=== PATIENT | male | born 1990 | race Two or more races ===

== ENCOUNTER 2021-02-08 09:18 | Outpatient (REF) | payer OTHER, SELFPAY | END 2021-02-08 09:19 | disposition home or self-care (01) | LOC: HO.LAB 09:18 | PROVIDERS: Visit Provider Internal Medicine | DX: Z20.822 Contact with and (suspected) exposure to COVID-19 (principal) | CPT/HCPCS: 36415; C9803; U0003; U0005 ==

== ENCOUNTER 2022-08-16 09:44 | Emergency (ER) | payer MEDICAID, SELFPAY ==
[2022-08-16 10:06] VITALS: BP 124/57; PULSE 56; RESP 18; TEMP 36.9; O2SAT 100; BMI 26.5
[2022-08-16 10:21] LABS: MANUAL DIFF FLAG NO
[2022-08-16 10:22] LABS: Basophils Percent Auto 0.4 % (0-2); Eosinophils Absolute Auto 0.1 X10*3/uL (0.0-0.4); Eosinophils Percent Auto 0.7 % (0-4); Hematocrit 46.2 % (42.0-52.0); Hemoglobin 15.2 g/dl (14.0-18.0); Imm Gran Abs Auto 0.03 X10*3/uL (0.00-0.03); Imm Gran Pct Auto 0.4 % (0.0-0.4); Lymphocytes Absolute Auto 2.1 X10*3/uL (1.2-4.9); Lymphocytes Percent Auto 31.1 % (20-40); Mean Corpuscular HGB Conc 32.9 g/dl (31.0-36.0); Mean Corpuscular Hemoglobin 28.7 pg (27.0-33.0); Mean Corpuscular Volume 87.3 fL (80.0-98.0); Mean Platelet Volume 9.6 fL (9.4-12.4); Monocytes Absolute Auto 0.4 X10*3/uL (0.1-1.2); Monocytes Percent Auto 6.1 % (2-11); Neutrophils Absolute Auto 4.2 x10*3/uL (2.0-8.3); Neutrophils Percent Auto 61.3 % (45-73); Platelet Count 267 X10*3/uL (160-400); Red Blood Count 5.29 X10*6/uL (4.60-5.80); Red Cell Distribution Width 11.9 % (11.0-16.0); White Blood Count 6.8 X10*3/uL (4.8-10.8)
[2022-08-16 10:40] LABS: Alanine Aminotransferase 25 U/L (0-40); Albumin Level 4.4 g/dL (3.5-5.0); Alkaline Phosphatase 69 U/L (39-117); Anion Gap 13 (12-20); Aspartate Amino Transferase 26 U/L (5-37); Bilirubin Total 0.6 mg/dL (0.0-1.0); Blood Urea Nitrogen 17 mg/dL (9-16); Calcium 9.5 mg/dL (8.4-10.2); Carbon Dioxide 26 mmol/L (22-29); Chloride 106 mmol/L (96-108); Creatinine Clr Calc Pharmacy 77.6; Estimated Glomerular Filt Rate > 60; Glucose Random 101 mg/dL (60-115); Lipase 14 U/L (8-78); Magnesium 1.9 mg/dL (1.6-2.6); Potassium 4.9 mmol/L (3.3-5.1); Sodium 140 mmol/L (135-145); Total Protein 7.2 g/dL (6.5-8.0)
[2022-08-16 10:46] LABS: COVID-19 Test Negative (Negative); IDNOW Serial# 16C4AD1C
--- NOTE | 2022-08-16 12:22 | ED.NAVMDI ---
HPI - Nausea/Vomiting/Diarrhea General Chief complaint: Nausea/Vomiting/Diarrhea Stated complaint: stomach pain Time Seen by Provider: 08/16/22 10:04 Source: patient Mode of arrival: ambulatory Limitations: no limitations History of Present Illness HPI Narrative: Patient comes to the emergency room complaining of nausea and vomiting x1 this morning. Patient went to the [employer] last night, states that something that he ate did not agree with him. Patient called out of work. Patient states that at work at home that he needed a work excuse to return to work tomorrow. At this time, the patient denies any abdominal pain, no nausea or vomiting or diarrhea, no fever chills, no URI or UTI symptoms Related Data Allergies Allergy/AdvReac Type Severity Reaction Status Date / Time No Known Allergies Allergy Unverified 08/06/20 19:20 [No Known Allergies*] Review of Systems Review of Systems: Constitutional : No Weight loss, No Fever, No Chills, No Night Sweats, No Fatigue, No Malaise ENT/Mouth : No Hearing loss, No Ear Pain, No Nasal Congestion, No Sinus Pain, No Hoarseness, No sore throat, No Rhinorrhea, No Swallowing Difficulty Eyes: No Eye Pain, No Swelling, No Redness, No Foreign Body, No Discharge, No Vision Changes Cardiovascular : No Chest Pain, No SOB, No Dyspnea on Exertion, No Orthopnea, No Edema, No Palpitations Respiratory : No Cough, No Sputum, No Wheezing, No Smoke Exposure, No Dyspnea Gastrointestinal : Complaining of nausea and vomiting, No Diarrhea, No Constipation, No abdominal Pain, No Hematochezia, No Melena Genitourinary : no irregular bleeding, No Dysuria, No Urinary Frequency, No Hematuria, No Urinary Incontinence, No Urgency, No Flank Pain, No Urinary Flow Changes, No Hesitancy Musculoskeletal : No joint pain, No Myalgias, No Joint Swelling Skin : No Skin Lesions, No rash Neuro : No Weakness, No Numbness, No Paresthesias, No Loss of Consciousness, No Dizziness, No Headache Psych : No Anxiety/Panic, No Depression, No SI/HI/AH/VH, No Social Issues, Heme/Lymph: No Bruising, No Bleeding,No Lymphadenopathy Endocrine : No Polyuria, No Polydipsia, No Temperature Intolerance Physical Exam Vital Signs: Vital Signs: Last Vital Signs Temp 98.4 F 08/16/22 10:06 Pulse 56 08/16/22 10:06 Resp 18 08/16/22 10:06 BP 124/57 L 08/16/22 10:06 Pulse Ox 100 08/16/22 10:06 O2 Del Method 08/16/22 10:06 BMI result Body Mass Index 26.5 Const: Other: Appearance: Alert. Oriented X3. No acute distress. Well-appearing Eyes: Pupils equal, round and reactive to light. ENT: Pharynx normal. Neck: Normal inspection. Neck supple. No lymph nodes noted. No crepitus CVS: Normal heart rate and rhythm. Pulses normal. Normal S1 and S2 Respiratory: No respiratory distress. Breath sounds normal. No Wheezing. No rales Abdomen: Soft and nontender. No rigidity. No distention. Skin: Skin warm and dry. Normal skin color. Normal skin turgor. Extremities: No lower extremity edema. No Lacerations. No Rash Neuro: Oriented X 3. No motor deficit. No sensory deficit. Moving all extremities. No slurred speech. CN 2 through 12 grossly intact Psych: calm, cooperative, normal affect Course Course Course Narrative: Patient vomited x1 in the morning. No diarrhea. No significant electrolyte abnormalities. COVID test is negative. Now patient is asymptomatic. Patient declined a prescription for nausea/vomiting. Patient only needs a work note MDM - Nausea/Vomiting/Diarrhea Lab Data Result diagrams: 08/16/22 10:16 08/16/22 10:16 Labs: Lab Results 08/16/22 08/16/22 08/16/22 Range/Units 10:16 10:16 10:16 WBC 6.8 (4.8-10.8) X10*3/uL RBC 5.29 (4.60-5.80) X10*6/uL Hgb 15.2 (14.0-18.0) g/dl Hct 46.2 (42.0-52.0) % MCV 87.3 (80.0-98.0) fL MCH 28.7 (27.0-33.0) pg MCHC 32.9 (31.0-36.0) g/dl RDW 11.9 (11.0-16.0) % Plt Count 267 (160-400) X10*3/uL MPV 9.6 (9.4-12.4) fL Immature Gran % (Auto) 0.4 (0.0-0.4) % Neut % (Auto) 61.3 (45-73) % Lymph % (Auto) 31.1 (20-40) % [place] % (Auto) 6.1 (2-11) % Eos % (Auto) 0.7 (0-4) % Baso % (Auto) 0.4 (0-2) % Lymph # (Auto) 2.1 (1.2-4.9) X10*3/uL [place] # (Auto) 0.4 (0.1-1.2) X10*3/uL Eos # (Auto) 0.1 (0.0-0.4) X10*3/uL Baso # (Auto) 0.0 (0.0-0.2) X10*3/uL Abs Immat Gran (auto) 0.03 (0.00-0.03) X10*3/uL Absolute Neuts (auto) 4.2 (2.0-8.3) x10*3/uL Absolute Nucleated RBC 0.000 (0.0-0.012) X10*3/uL Nucleated RBC % (auto) 0.0 (0.0-0.2) /100WBC Sodium 140 (135-145) mmol/L Potassium 4.9 (3.3-5.1) mmol/L Chloride 106 (96-108) mmol/L Carbon Dioxide 26 (22-29) mmol/L Anion Gap 13 (12-20) BUN 17 H (9-16) mg/dL Creatinine 1.13 (0.5-1.4) mg/dL Estim Creat Clear Calc 77.6 Estimated GFR > 60 Random Glucose 101 (60-115) mg/dL Calcium 9.5 (8.4-10.2) mg/dL Magnesium 1.9 (1.6-2.6) mg/dL Total Bilirubin 0.6 (0.0-1.0) mg/dL AST 26 (5-37) U/L ALT 25 (0-40) U/L Alkaline Phosphatase 69 (39-117) U/L Total Protein 7.2 (6.5-8.0) g/dL Albumin 4.4 (3.5-5.0) g/dL Lipase 14 (8-78) U/L COVID-19 (GINI) Negative (Negative) COVID-19 Clin Com See Note Discharge Plan Discharge Clinical Impression: Nausea & vomiting Patient Disposition: Home, Self-Care Instructions: Acute Nausea and Vomiting (ED) Additional Instructions: Please follow-up with your primary care physician tomorrow. If you have any worsening or new symptoms, please return to the emergency room or call 911 Stand Alone Forms: Work/School Release
[2022-08-16 12:23] VITALS: BP 137/80; PULSE 88; RESP 18; TEMP 36.8; O2SAT 100
== END 2022-08-16 13:00 | disposition home or self-care (01) ==
PROVIDERS: Physician Assistant Medical; Emergency Provider Emergency Medicine
DX: R10.9 Unspecified abdominal pain (principal); R11.2 Nausea with vomiting, unspecified; Z20.822 Contact with and (suspected) exposure to COVID-19; Z79.899 Other long term (current) drug therapy
CPT/HCPCS: 36415; 80053; 83690; 83735; 85025; 87635; 99283; 99284

== ENCOUNTER 2023-02-04 11:26 | Emergency (ER) | payer MEDICAID, SELFPAY ==
--- NOTE | ~2023-02-04 | XR_ITS ---
EXAMINATION: XR CHEST CLINICAL INFORMATION: Chest pain. COMPARISON: None available. TECHNIQUE: Frontal view of the chest was obtained. FINDINGS: No significant abnormality is noted involving the heart, lungs, mediastinum, bony thorax or soft tissues. XR/XR chest 1V IMPRESSION: No acute cardiopulmonary process.
[2023-02-04 11:28] VITALS: BP 126/83; PULSE 82; RESP 17; TEMP 36.2; O2SAT 99; BMI 27.8
--- NOTE | 2023-02-04 11:29 | ED.GENADULT ---
HPI - General Adult General Chief complaint: General Medical <RUSSELL Alvarado - Last Filed: 02/04/23 11:30> Stated complaint: not feeling well, feeling faint <RUSSELL Alvarado - Last Filed: 02/04/23 11:30> Time Seen by Provider: 02/04/23 11:44 <RUSSELL Alvarado - Last Filed: 02/04/23 11:30> Source: patient <Sean Tang MD - Last Filed: 02/04/23 15:27> Mode of arrival: ambulatory <Sean Tang MD - Last Filed: 02/04/23 15:27> Limitations: no limitations <Sean Tang MD - Last Filed: 02/04/23 15:27> History of Present Illness HPI narrative: 32-year-old male came in for evaluation of chest pain started early this morning before 07:00. [place] like stabbing chest pain to the mid chest, no radiation, lasted for about 10 minutes at 7/10 pain, no relieving factor, no aggravating factor. Patient with pain felt anxious with tremor to his hands. Patient now has no chest pain no SOB, no history of anxiety in the past, no significant or stressful event in his life at this point. Patient drinks alcohol on occasions but would not consider himself a daily drinker, patient also declined using any drugs only smokes marijuana on occasions. <Sean Tang MD - Last Filed: 02/04/23 15:27> Related Data Allergies/adverse reactions: Allergies Allergy/AdvReac Type Severity Reaction Status Date / Time No Known Allergies Allergy Unverified 08/06/20 19:20 [No Known Allergies*] <RUSSELL Alvarado - Last Filed: 02/04/23 11:30> Review of Systems Review of Systems: All other systems are reviewed and are negative Constitutional: Reports as per HPI and Reports no additional constitutional complaints Eyes: Reports as per HPI and Reports no additional eye complaints Reports system reviewed and no additional complaints, except as documented Cardiovascular: Reports as per HPI and Reports no additional cardiovascular complaints Respiratory: Reports as per HPI and Reports no additional respiratory complaints Gastrointestinal: Reports as per HPI and Reports no additional gastrointestinal complaints Genitourinary: Reports no additional female genitourinary complaints Musculoskeletal: Reports no additional musculoskeletal complaints Skin/Breast: Reports system reviewed and no additional complaints, except as docu Psychiatric: Reports no additional psychiatric complaints Endocrine: Reports no additional endocrine complaints Hematologic/Lymphatic: Reports no additional hematologic/lymphatic complaints Allergic/Immunologic: Reports no additional allergic/immunologic complaints Reports system reviewed and no additional complaints, except as documented and Reports Abnormal speech present <Sean Tang MD - Last Filed: 02/04/23 15:27> [facility] Social History Social History: Social History Advance Directives: No Advance Directives Information Provided: No <RUSSELL Alvarado - Last Filed: 02/04/23 11:30> Physical Exam ED Vital Signs: Vital Signs - 24 hr 02/04/23 11:28 02/04/23 12:26 02/04/23 13:56 Temperature 97.1 F Pulse Rate 82 78 73 Respiratory Rate 17 14 16 Blood Pressure 126/83 123/76 128/77 Pulse Oximetry 99 100 98 Oxygen Delivery Method Room Air Room Air Room Air BMI result Body Mass Index 27.8 <RUSSELL Alvarado - Last Filed: 02/04/23 11:30> Vital Signs - 24 hr 02/04/23 11:28 02/04/23 12:26 02/04/23 13:56 Temperature 97.1 F Pulse Rate 82 78 73 Respiratory Rate 17 14 16 Blood Pressure 126/83 123/76 128/77 Pulse Oximetry 99 100 98 Oxygen Delivery Method Room Air Room Air Room Air BMI result Body Mass Index 27.8 Vital signs have been reviewed as appeared to be correct. Blood pressure normal. Heart rate normal. Respiration rate normal. Temperature normal. Oxygen saturation normal. <Sean Tang MD - Last Filed: 02/04/23 15:27> Appearance: Alert. Oriented X3. No acute distress. Head: Normal external exam. Normocephalic. Atraumatic. No Wright signs noted. No raccoon eyes noted Eyes: PERRLA. EOMI. Conjunctiva and sclera normal. Eyelids normal. ENT: TM's Normal. Pharynx normal. Uvula midline. Moist mucous membranes. No trismus noted. No drooling noted. No muffled voice noted. Neck: Normal inspection. Neck supple. FROM. No adenopathy. Thyroid Normal. No meningeal signs. No neck mass noted. CVS: Normal heart rate and rhythm. Heart sound normal. No murmurs noted. Pulses normal throughout. Respiratory: No respiratory distress. Painless inspiration. Breath sounds normal. No wheezes/rales/rhonchi noted. Chest nontender. No accessory muscle usage noted or decreased air movement noted. Abdomen: Soft and nontender. Bowel sounds normal in all 4 quadrants. No distention noted. No organomegaly noted. No visible injury noted. Back: No CVA tenderness. Full range of motion noted. Skin: Skin warm and dry. Normal skin color. Normal skin turgor. No rashes/lesions/lacerations noted. Extremities: No lower extremity edema. Extremities exhibit normal range of motion. Extremities nontender. Neuro: Oriented X 3. Cranial nerve exam: II-XII are grossly intact No motor deficit. No sensory deficit. Reflexes normal. <Sean Tang MD - Last Filed: 02/04/23 15:27> Course Course Course Narrative: RME performed by Mabel Gonzalez PA-C. Patient is a 32 year old male presenting to the emergency department feeling generally unwell. Patient states that his symptoms started today. Labs ordered. Patient placed back in the waiting room pending results and room availability. <RUSSELL Alvarado - Last Filed: 02/04/23 11:30> Reevaluation(s) Reevaluation #1: Woke up with chest pain that is likely triggered the patient to be anxious, currently patient has no chest pain, unremarkable labs, EKG, chest x-ray. Will reassure and discharge. <Sean Tang MD - Last Filed: 02/04/23 15:27> Medications Administered Discontinued Medications Generic Name Dose Route Start Last Admin Trade Name Freq PRN Reason Stop Dose Admin Lorazepam 1 mg 02/04/23 12:04 02/04/23 12:27 Lorazepam 1 Mg Tablet PO 02/04/23 12:05 1 mg ONCE ONE Administration <RUSSELL Alvarado - Last Filed: 02/04/23 11:30> Medications Administered Discontinued Medications Generic Name Dose Route Start Last Admin Trade Name Freq PRN Reason Stop Dose Admin Lorazepam 1 mg 02/04/23 12:04 02/04/23 12:27 Lorazepam 1 Mg Tablet PO 02/04/23 12:05 1 mg ONCE ONE Administration <Sean Tang MD - Last Filed: 02/04/23 15:27> Medical Decision Making Differential Diagnosis Differential Diagnoses: The differential diagnosis associated with the presentation includes (Chest pain, ACS, pneumonia, pneumothorax, substance abuse, anxiety.) <Sean Tang MD - Last Filed: 02/04/23 15:27> Lab Data MDM Lab Attestation statement: I reviewed the patient's lab results. <Sean Tang MD - Last Filed: 02/04/23 15:27> Result Diagrams: 02/04/23 11:45 02/04/23 11:45 <RUSSELL Alvarado - Last Filed: 02/04/23 11:30> Labs: Lab Results 02/04/23 02/04/23 02/04/23 Range/Units 11:37 11:45 11:45 WBC 7.7 (4.8-10.8) X10*3/uL RBC 5.08 (4.60-5.80) X10*6/uL Hgb 14.7 (14.0-18.0) g/dl Hct 44.8 (42.0-52.0) % MCV 88.2 (80.0-98.0) fL MCH 28.9 (27.0-33.0) pg MCHC 32.8 (31.0-36.0) g/dl RDW 12.1 (11.0-16.0) % Plt Count 245 (160-400) X10*3/uL MPV 9.6 (9.4-12.4) fL Immature Gran % (Auto) 0.4 (0.0-0.4) % Neut % (Auto) 52.9 (45-73) % Lymph % (Auto) 38.6 (20-40) % [place] % (Auto) 6.8 (2-11) % Eos % (Auto) 1.0 (0-4) % Baso % (Auto) 0.3 (0-2) % Lymph # (Auto) 3.0 (1.2-4.9) X10*3/uL [place] # (Auto) 0.5 (0.1-1.2) X10*3/uL Eos # (Auto) 0.1 (0.0-0.4) X10*3/uL Baso # (Auto) 0.0 (0.0-0.2) X10*3/uL Abs Immat Gran (auto) 0.03 (0.00-0.03) X10*3/uL Absolute Neuts (auto) 4.1 (2.0-8.3) x10*3/uL Absolute Nucleated RBC 0.000 (0.0-0.012) X10*3/uL Nucleated RBC % (auto) 0.0 (0.0-0.2) /100WBC Sodium 138 (135-145) mmol/L Potassium 4.1 (3.3-5.1) mmol/L Chloride 105 (96-108) mmol/L Carbon Dioxide 26 (22-29) mmol/L Anion Gap 11 L (12-20) BUN 18 H (9-16) mg/dL Creatinine 1.07 (0.5-1.4) mg/dL Estim Creat Clear Calc 89.4 Estimated GFR > 60 Random Glucose 91 (60-115) mg/dL Calcium 9.3 (8.4-10.2) mg/dL Magnesium 1.9 (1.6-2.6) mg/dL Total Bilirubin 0.5 (0.0-1.0) mg/dL AST 21 (5-37) U/L ALT 23 (0-40) U/L Alkaline Phosphatase 68 (39-117) U/L Troponin I High Sens (<3.5-35.0) ng/L Total Protein 6.8 (6.5-8.0) g/dL Albumin 4.2 (3.5-5.0) g/dL Urine Color Yellow Urine Appearance Clear Urine pH 5.5 (5.0-9.0) Ur Specific [place] 1.020 (1.005-1.025) Urine Protein Negative (Neg-Trace) mg/dL Urine Glucose (UA) Negative (Negative) mg/dL Urine Ketones Negative (Negative) mg/dL Urine Blood Negative (Negative) Urine Nitrite Negative (Negative) Ur Leukocyte Esterase Negative (Negative) COVID-19 (GINI) (Negative) COVID-19 Clin Com 02/04/23 02/04/23 Range/Units 11:45 11:45 WBC (4.8-10.8) X10*3/uL RBC (4.60-5.80) X10*6/uL Hgb (14.0-18.0) g/dl Hct (42.0-52.0) % MCV (80.0-98.0) fL MCH (27.0-33.0) pg MCHC (31.0-36.0) g/dl RDW (11.0-16.0) % Plt Count (160-400) X10*3/uL MPV (9.4-12.4) fL Immature Gran % (Auto) (0.0-0.4) % Neut % (Auto) (45-73) % Lymph % (Auto) (20-40) % [place] % (Auto) (2-11) % Eos % (Auto) (0-4) % Baso % (Auto) (0-2) % Lymph # (Auto) (1.2-4.9) X10*3/uL [place] # (Auto) (0.1-1.2) X10*3/uL Eos # (Auto) (0.0-0.4) X10*3/uL Baso # (Auto) (0.0-0.2) X10*3/uL Abs Immat Gran (auto) (0.00-0.03) X10*3/uL Absolute Neuts (auto) (2.0-8.3) x10*3/uL Absolute Nucleated RBC (0.0-0.012) X10*3/uL Nucleated RBC % (auto) (0.0-0.2) /100WBC Sodium (135-145) mmol/L Potassium (3.3-5.1) mmol/L Chloride (96-108) mmol/L Carbon Dioxide (22-29) mmol/L Anion Gap (12-20) BUN (9-16) mg/dL Creatinine (0.5-1.4) mg/dL Estim Creat Clear Calc Estimated GFR Random Glucose (60-115) mg/dL Calcium (8.4-10.2) mg/dL Magnesium (1.6-2.6) mg/dL Total Bilirubin (0.0-1.0) mg/dL AST (5-37) U/L ALT (0-40) U/L Alkaline Phosphatase (39-117) U/L Troponin I High Sens < 3.5 (<3.5-35.0) ng/L Total Protein (6.5-8.0) g/dL Albumin (3.5-5.0) g/dL Urine Color Urine Appearance Urine pH (5.0-9.0) Ur Specific [place] (1.005-1.025) Urine Protein (Neg-Trace) mg/dL Urine Glucose (UA) (Negative) mg/dL Urine Ketones (Negative) mg/dL Urine Blood (Negative) Urine Nitrite (Negative) Ur Leukocyte Esterase (Negative) COVID-19 (GINI) Negative (Negative) COVID-19 Clin Com See Note <RUSSELL Alvarado - Last Filed: 02/04/23 11:30> Lab Results 02/04/23 02/04/23 02/04/23 Range/Units 11:37 11:45 11:45 WBC 7.7 (4.8-10.8) X10*3/uL RBC 5.08 (4.60-5.80) X10*6/uL Hgb 14.7 (14.0-18.0) g/dl Hct 44.8 (42.0-52.0) % MCV 88.2 (80.0-98.0) fL MCH 28.9 (27.0-33.0) pg MCHC 32.8 (31.0-36.0) g/dl RDW 12.1 (11.0-16.0) % Plt Count 245 (160-400) X10*3/uL MPV 9.6 (9.4-12.4) fL Immature Gran % (Auto) 0.4 (0.0-0.4) % Neut % (Auto) 52.9 (45-73) % Lymph % (Auto) 38.6 (20-40) % [place] % (Auto) 6.8 (2-11) % Eos % (Auto) 1.0 (0-4) % Baso % (Auto) 0.3 (0-2) % Lymph # (Auto) 3.0 (1.2-4.9) X10*3/uL [place] # (Auto) 0.5 (0.1-1.2) X10*3/uL Eos # (Auto) 0.1 (0.0-0.4) X10*3/uL Baso # (Auto) 0.0 (0.0-0.2) X10*3/uL Abs Immat Gran (auto) 0.03 (0.00-0.03) X10*3/uL Absolute Neuts (auto) 4.1 (2.0-8.3) x10*3/uL Absolute Nucleated RBC 0.000 (0.0-0.012) X10*3/uL Nucleated RBC % (auto) 0.0 (0.0-0.2) /100WBC Sodium 138 (135-145) mmol/L Potassium 4.1 (3.3-5.1) mmol/L Chloride 105 (96-108) mmol/L Carbon Dioxide 26 (22-29) mmol/L Anion Gap 11 L (12-20) BUN 18 H (9-16) mg/dL Creatinine 1.07 (0.5-1.4) mg/dL Estim Creat Clear Calc 89.4 Estimated GFR > 60 Random Glucose 91 (60-115) mg/dL Calcium 9.3 (8.4-10.2) mg/dL Magnesium 1.9 (1.6-2.6) mg/dL Total Bilirubin 0.5 (0.0-1.0) mg/dL AST 21 (5-37) U/L ALT 23 (0-40) U/L Alkaline Phosphatase 68 (39-117) U/L Troponin I High Sens (<3.5-35.0) ng/L Total Protein 6.8 (6.5-8.0) g/dL Albumin 4.2 (3.5-5.0) g/dL Urine Color Yellow Urine Appearance Clear Urine pH 5.5 (5.0-9.0) Ur Specific [place] 1.020 (1.005-1.025) Urine Protein Negative (Neg-Trace) mg/dL Urine Glucose (UA) Negative (Negative) mg/dL Urine Ketones Negative (Negative) mg/dL Urine Blood Negative (Negative) Urine Nitrite Negative (Negative) Ur Leukocyte Esterase Negative (Negative) COVID-19 (GINI) (Negative) COVID-19 Clin Com 02/04/23 02/04/23 Range/Units 11:45 11:45 WBC (4.8-10.8) X10*3/uL RBC (4.60-5.80) X10*6/uL Hgb (14.0-18.0) g/dl Hct (42.0-52.0) % MCV (80.0-98.0) fL MCH (27.0-33.0) pg MCHC (31.0-36.0) g/dl RDW (11.0-16.0) % Plt Count (160-400) X10*3/uL MPV (9.4-12.4) fL Immature Gran % (Auto) (0.0-0.4) % Neut % (Auto) (45-73) % Lymph % (Auto) (20-40) % [place] % (Auto) (2-11) % Eos % (Auto) (0-4) % Baso % (Auto) (0-2) % Lymph # (Auto) (1.2-4.9) X10*3/uL [place] # (Auto) (0.1-1.2) X10*3/uL Eos # (Auto) (0.0-0.4) X10*3/uL Baso # (Auto) (0.0-0.2) X10*3/uL Abs Immat Gran (auto) (0.00-0.03) X10*3/uL Absolute Neuts (auto) (2.0-8.3) x10*3/uL Absolute Nucleated RBC (0.0-0.012) X10*3/uL Nucleated RBC % (auto) (0.0-0.2) /100WBC Sodium (135-145) mmol/L Potassium (3.3-5.1) mmol/L Chloride (96-108) mmol/L Carbon Dioxide (22-29) mmol/L Anion Gap (12-20) BUN (9-16) mg/dL Creatinine (0.5-1.4) mg/dL Estim Creat Clear Calc Estimated GFR Random Glucose (60-115) mg/dL Calcium (8.4-10.2) mg/dL Magnesium (1.6-2.6) mg/dL Total Bilirubin (0.0-1.0) mg/dL AST (5-37) U/L ALT (0-40) U/L Alkaline Phosphatase (39-117) U/L Troponin I High Sens < 3.5 (<3.5-35.0) ng/L Total Protein (6.5-8.0) g/dL Albumin (3.5-5.0) g/dL Urine Color Urine Appearance Urine pH (5.0-9.0) Ur Specific [place] (1.005-1.025) Urine Protein (Neg-Trace) mg/dL Urine Glucose (UA) (Negative) mg/dL Urine Ketones (Negative) mg/dL Urine Blood (Negative) Urine Nitrite (Negative) Ur Leukocyte Esterase (Negative) COVID-19 (GINI) Negative (Negative) COVID-19 Clin Com See Note <Sean Tang MD - Last Filed: 02/04/23 15:27> Independent Interpretation I performed an independent interpretation of an: EKG (Normal sinus rhythm at 96 beats per minutes, normal axis deviation, normal intervals, no ST-T changes.) and Plain X-Ray (Chest: No acute intrathoracic pathology.) <Sean Tang MD - Last Filed: 02/04/23 15:27> Radiology Impression Discussion of test interpretation with radiology: I have reviewed the radiologist's reading. <Sean Tang MD - Last Filed: 02/04/23 15:27> Discharge Plan Discharge Clinical Impression: Anxiety <RUSSELL Alvarado - Last Filed: 02/04/23 11:30> Patient Disposition: Home, Self-Care <RUSSELL Alvarado - Last Filed: 02/04/23 11:30> Instructions: Anxiety (ED) <RUSSELL Alvarado - Last Filed: 02/04/23 11:30> Referrals: [facility] [Primary Care Provider] - <RUSSELL Alvarado - Last Filed: 02/04/23 11:30> Stand Alone Forms: Work/School Release <RUSSELL Alvarado - Last Filed: 02/04/23 11:30>
--- NOTE | 2023-02-04 11:30 | ECG_ITS ---
Test Reason : weakness Blood Pressure : / mmHG Vent. Rate : 096 BPM Atrial Rate : 096 BPM P-R Int : 156 ms QRS Dur : 082 ms QT Int : 336 ms P-R-T Axes : 041 063 036 degrees QTc Int : 424 ms Normal sinus rhythm Normal ECG No previous ECGs available Referred By: Mabel Gonzalez Electronically Signed By:Olivier Parr
[2023-02-04 11:44] LABS: Appearance Urine Clear; Color Urine Yellow; Glucose Urine UA Negative (Negative); Leukocyte Esterase Urine Negative (Negative); Nitrite Urine Negative (Negative); PH 5.5 (5.0-9.0); Urine Blood Negative (Negative); Urine Ketones Negative (Negative); Urine Protein Negative (Neg-Trace)
[2023-02-04 11:51] LABS: MANUAL DIFF FLAG NO
[2023-02-04 11:53] LABS: Basophils Percent Auto 0.3 % (0-2); Eosinophils Absolute Auto 0.1 X10*3/uL (0.0-0.4); Hematocrit 44.8 % (42.0-52.0); Hemoglobin 14.7 g/dl (14.0-18.0); Imm Gran Abs Auto 0.03 X10*3/uL (0.00-0.03); Imm Gran Pct Auto 0.4 % (0.0-0.4); Lymphocytes Percent Auto 38.6 % (20-40); Mean Corpuscular HGB Conc 32.8 g/dl (31.0-36.0); Mean Corpuscular Hemoglobin 28.9 pg (27.0-33.0); Mean Corpuscular Volume 88.2 fL (80.0-98.0); Mean Platelet Volume 9.6 fL (9.4-12.4); Monocytes Absolute Auto 0.5 X10*3/uL (0.1-1.2); Monocytes Percent Auto 6.8 % (2-11); Neutrophils Absolute Auto 4.1 x10*3/uL (2.0-8.3); Neutrophils Percent Auto 52.9 % (45-73); Platelet Count 245 X10*3/uL (160-400); Red Blood Count 5.08 X10*6/uL (4.60-5.80); Red Cell Distribution Width 12.1 % (11.0-16.0); White Blood Count 7.7 X10*3/uL (4.8-10.8)
[2023-02-04 12:09] LABS: Alanine Aminotransferase 23 U/L (0-40); Albumin Level 4.2 g/dL (3.5-5.0); Alkaline Phosphatase 68 U/L (39-117); Anion Gap 11 (12-20); Aspartate Amino Transferase 21 U/L (5-37); Bilirubin Total 0.5 mg/dL (0.0-1.0); Blood Urea Nitrogen 18 mg/dL (9-16); Calcium 9.3 mg/dL (8.4-10.2); Carbon Dioxide 26 mmol/L (22-29); Chloride 105 mmol/L (96-108); Creatinine Clr Calc Pharmacy 89.4; Estimated Glomerular Filt Rate > 60; Glucose Random 91 mg/dL (60-115); Magnesium 1.9 mg/dL (1.6-2.6); Potassium 4.1 mmol/L (3.3-5.1); Sodium 138 mmol/L (135-145); Total Protein 6.8 g/dL (6.5-8.0)
[2023-02-04 12:11] LABS: COVID-19 Test Negative (Negative); IDNOW Serial# 08D9AD1C
[2023-02-04 12:16] LABS: Troponin-I High Sensitivity < 3.5 ng/L (<3.5-35.0)
[2023-02-04 12:26] VITALS: BP 123/76; PULSE 78; RESP 14; O2SAT 100
[2023-02-04] MEDS: LORazepam 1 MG TABLET PO (12:27)
[2023-02-04 13:56] VITALS: BP 128/77; PULSE 73; RESP 16; O2SAT 98
== END 2023-02-04 15:40 | disposition home or self-care (01) ==
PROVIDERS: Physician Assistant Medical; Emergency Provider Emergency Medicine
DX: F41.9 Anxiety disorder, unspecified (principal); Z20.822 Contact with and (suspected) exposure to COVID-19
CPT/HCPCS: 71045; 80053; 81003; 83735; 84484; 85025; 87635; 93005; 99283; 99284

== ENCOUNTER 2024-10-18 21:08 | Emergency (ER) | payer SELFPAY ==
[2024-10-18 21:10] VITALS: BP 115/69; PULSE 81; RESP 16; TEMP 36.1; O2SAT 95; BMI 32.6
[2024-10-18 21:23] LABS: MANUAL DIFF FLAG NO
[2024-10-18 21:26] LABS: Basophils Percent Auto 0.4 % (0-2); Eosinophils Absolute Auto 0.2 X10*3/uL (0.0-0.4); Eosinophils Percent Auto 2.3 % (0-4); Hematocrit 44.8 % (42.0-52.0); Hemoglobin 15.1 g/dl (14.0-18.0); Imm Gran Abs Auto 0.04 X10*3/uL (0.00-0.03); Imm Gran Pct Auto 0.4 % (0.0-0.4); Lymphocytes Absolute Auto 2.9 X10*3/uL (1.2-4.9); Lymphocytes Percent Auto 32.1 % (20-40); Mean Corpuscular HGB Conc 33.7 g/dl (31.0-36.0); Mean Corpuscular Hemoglobin 29.5 pg (27.0-33.0); Mean Corpuscular Volume 87.5 fL (80.0-98.0); Mean Platelet Volume 9.3 fL (9.4-12.4); Monocytes Absolute Auto 0.7 X10*3/uL (0.1-1.2); Monocytes Percent Auto 7.7 % (2-11); Neutrophils Absolute Auto 5.2 x10*3/uL (2.0-8.3); Neutrophils Percent Auto 57.1 % (45-73); Platelet Count 263 X10*3/uL (160-400); Red Blood Count 5.12 X10*6/uL (4.60-5.80); Red Cell Distribution Width 12.2 % (11.0-16.0); White Blood Count 9.2 X10*3/uL (4.8-10.8)
[2024-10-18 21:37] LABS: Alanine Aminotransferase 47 U/L (0-40); Albumin Level 4.4 g/dL (3.5-5.0); Alkaline Phosphatase 77 U/L (39-117); Anion Gap 12 (12-20); Aspartate Amino Transferase 29 U/L (5-37); Bilirubin Direct < 0.2 mg/dL (0.0-0.5); Bilirubin Total 0.2 mg/dL (0.0-1.0); Blood Urea Nitrogen 18 mg/dL (9-16); Calcium 9.2 mg/dL (8.4-10.2); Carbon Dioxide 25 mmol/L (22-29); Chloride 108 mmol/L (96-108); Creatinine Clr Calc Pharmacy 83.7; Estimated Glomerular Filt Rate > 60; Glucose Random 118 mg/dL (60-115); Lipase 33 U/L (8-78); Potassium 4.3 mmol/L (3.3-5.1); Sodium 141 mmol/L (135-145); Total Protein 7.4 g/dL (6.5-8.0)
[2024-10-19 02:47] VITALS: BP 107/63; PULSE 71; RESP 16; TEMP 36.4; O2SAT 97
[2024-10-19 04:05] VITALS: BP 109/55; PULSE 54; RESP 16; O2SAT 98
--- NOTE | 2024-10-19 04:17 | ED.ABDPAIN ---
HPI - Abdominal Pain General Chief Complaint: Abdominal Pain Stated Complaint: abdominal pain Source: patient Mode of arrival: ambulatory Limitations: no limitations History of Present Illness ED Provider: HPI narrative: Patient otherwise healthy Complaining of diarrhea with abdominal cramps for last 4 days says that whenever he eats something him has bowel movement feet does not eat does not have bowel movement no nausea no vomiting does have diffuse abdominal cramps no history of anxiety Related Data Allergies Allergy/AdvReac Type Severity Reaction Status Date / Time No Known Allergies Allergy Verified 10/18/24 21:12 [No Known Allergies*] Review of Systems Review of Systems Yes all other systems are reviewed and are negative [facility]LY [facility] Social History Social History Advance Directives: No Advance Directives Information Provided: Yes Physical Exam ED Vital Signs: Vital Signs - 24 hr 10/18/24 21:10 10/19/24 02:47 10/19/24 04:05 Temperature 97 F 97.6 F Pulse Rate 81 71 54 Respiratory Rate 16 16 16 Blood Pressure 115/69 107/63 109/55 L Pulse Oximetry 95 97 98 Oxygen Delivery Method Room Air Room Air Room Air BMI result Body Mass Index 32.6 Appearance: Alert. Oriented X3. No acute distress. Eyes: PERRLA, No Nystagmus ENT: Pharynx normal. Oral Mucosa moist Neck: Normal inspection. Neck supple. CVS: Normal heart rate and rhythm. Pulses normal. Respiratory: No respiratory distress. Equal air entry bilateral, no wheezing/rales/rhonchi Abdomen: Soft and nontender. Bowel sounds are present, no mass palpable, no CVA tenderness Skin: Skin warm and dry. Normal skin color. Normal skin turgor. Extremities: No lower extremity edema. No calf tenderness Neuro: Oriented X 3. No motor deficit. No sensory deficit.No cerebellar signs , cranial nerves II-XII intact Medical Decision Making Medical Decision Making [facility] Narrative: Patient with diarrhea with abdominal cramps with normal labs likely from irritable bowel syndrome will give him dicyclomine Lab Data [facility] Lab Attestation statement: I reviewed the patient's lab results. 10/18/24 21:18 10/18/24 21:18 Labs: Lab Results 10/18/24 Range/Units 21:18 WBC 9.2 (4.8-10.8) X10*3/uL RBC 5.12 (4.60-5.80) X10*6/uL Hgb 15.1 (14.0-18.0) g/dl Hct 44.8 (42.0-52.0) % MCV 87.5 (80.0-98.0) fL MCH 29.5 (27.0-33.0) pg MCHC 33.7 (31.0-36.0) g/dl RDW 12.2 (11.0-16.0) % Plt Count 263 (160-400) X10*3/uL MPV 9.3 L (9.4-12.4) fL Immature Gran % (Auto) 0.4 (0.0-0.4) % Neut % (Auto) 57.1 (45-73) % Lymph % (Auto) 32.1 (20-40) % [place] % (Auto) 7.7 (2-11) % Eos % (Auto) 2.3 (0-4) % Baso % (Auto) 0.4 (0-2) % Lymph # (Auto) 2.9 (1.2-4.9) X10*3/uL [place] # (Auto) 0.7 (0.1-1.2) X10*3/uL Eos # (Auto) 0.2 (0.0-0.4) X10*3/uL Baso # (Auto) 0.0 (0.0-0.2) X10*3/uL Abs Immat Gran (auto) 0.04 H (0.00-0.03) X10*3/uL Absolute Neuts (auto) 5.2 (2.0-8.3) x10*3/uL Absolute Nucleated RBC 0.000 (0.0-0.012) X10*3/uL Nucleated RBC % (auto) 0.0 (0.0-0.2) /100WBC Sodium 141 (135-145) mmol/L Potassium 4.3 (3.3-5.1) mmol/L Chloride 108 (96-108) mmol/L Carbon Dioxide 25 (22-29) mmol/L Anion Gap 12 (12-20) BUN 18 H (9-16) mg/dL Creatinine 1.22 (0.5-1.4) mg/dL Estim Creat Clear Calc 83.7 Estimated GFR > 60 Random Glucose 118 H (60-115) mg/dL Calcium 9.2 (8.4-10.2) mg/dL Total Bilirubin 0.2 (0.0-1.0) mg/dL Direct Bilirubin < 0.2 (0.0-0.5) mg/dL AST 29 (5-37) U/L ALT 47 H (0-40) U/L Alkaline Phosphatase 77 (39-117) U/L Total Protein 7.4 (6.5-8.0) g/dL Albumin 4.4 (3.5-5.0) g/dL Lipase 33 (8-78) U/L Discharge Plan Discharge Clinical Impression: Abdominal pain Qualifiers: Abdominal location: unspecified location Qualified Code(s): R10.9 - Unspecified abdominal pain Print Language: [place]ian
[2024-10-19 05:47] VITALS: BP 114/63; PULSE 70; RESP 18; TEMP 36.6; O2SAT 100
--- NOTE | 2024-10-19 05:50 | PC.NURSE ---
this rn assumed care of pt @ 0315. pt calm and cooperative denies pain at discharge. pt ambulatory provided with discharge packet verbalized understanding of discharge plan
[2024-10-19 05:51] VITALS: BP 114/63; PULSE 70; RESP 18; TEMP 36.6; O2SAT 100
== END 2024-10-19 05:52 | disposition home or self-care (01) ==
PROVIDERS: Emergency Provider Internal Medicine
DX: R10.9 Unspecified abdominal pain (principal)
CPT/HCPCS: 36415; 80048; 80076; 83690; 85025; 99283; 99284